=== PATIENT | male | born 1975 ===

== ENCOUNTER 2017-01-11 07:18 | Emergency (ER) | payer OTHER ==
[2017-01-11 07:24] VITALS: O2SAT 98
--- NOTE | 2017-01-11 08:24 | C.PDOC ---
History Of Present Illness 41-year-old male, presents to the emergency department with complaints of a fever since last night, that is associated with chills, generalized bodyaches, frontal headache and malaise. He did not take any medication. Denies nausea/ vomiting, diarrhea, back pain, symptoms, or any other associated symptoms. No other complaints at this time. Time Seen by Provider: 01/11/17 07:47 Chief Complaint (Nursing): Fever History Per: Patient History/Exam Limitations: no limitations Onset/Duration Of Symptoms: Days Current Symptoms Are (Timing): Still Present Past Medical History Reviewed: Historical Data, Nursing Documentation, Vital Signs Vital Signs: Last Vital Signs Temp 99.6 F 01/11/17 08:49 Pulse 82 01/11/17 08:49 Resp 16 01/11/17 08:49 BP 104/66 01/11/17 08:49 Pulse Ox 98 01/11/17 08:49 Family History: States: No Known Family Hx - Social History Hx Alcohol Use: No Hx Substance Use: No - Immunization History Hx Tetanus Toxoid Vaccination: No Hx Influenza Vaccination: No Hx Pneumococcal Vaccination: No Review Of Systems Except As Marked, All Systems Reviewed And Found Negative. Constitutional: Positive for: Fever, Chills, Malaise Cardiovascular: Negative for: Chest Pain Respiratory: Negative for: Shortness of Breath Gastrointestinal: Negative for: Nausea, Vomiting Genitourinary: Negative for: Dysuria, Frequency Musculoskeletal: Negative for: Back Pain Skin: Negative for: Rash Neurological: Negative for: Weakness, Headache, Dizziness Physical Exam - Physical Exam Appears: Non-toxic, No Acute Distress Skin: Warm, Dry, No Diaphoretic, No Rash Head: Atraumatic, Normacephalic Eye(s): bilateral: Normal Inspection, EOMI Ear(s): Bilateral: Normal Nose: Normal Oral Mucosa: Moist Lips: Normal Appearing Throat: Normal, No Erythema, No Exudate, No Drooling, No Mass Neck: Normal ROM, Supple Lymphatic: Normal Exam, No Adenopathy Chest: Symmetrical Cardiovascular: Rhythm Regular, No Murmur Respiratory: Normal Breath Sounds, No Accessory Muscle Use Gastrointestinal/Abdominal: Bowel Sounds, Soft, No Tenderness, No Distention, No Guarding Extremity: Bilateral: Atraumatic, Normal Color And Temperature, Normal ROM Neurological/Psych: Oriented x3, Normal Speech, Normal Motor, Normal Sensation Gait: Steady ED Course And Treatment O2 Sat by Pulse Oximetry: 98 Medical Decision Making Medical Decision Makin y.o male with no significant PMH complains of fever onset last night with associated generalized bodyaches and malaise. Patient has fever of 102F in ED and treated with Tylenol. Patient appears well nontoxic and in no acute distress. Exam was benign. He has no nuchal rigidity or signs of dehydration or surgical pathology. Patient encouraged to rest drink fluids and to continue with Motrin or tylenol for fever and follow up with PCP. Disposition Counseled Patient/Family Regarding: Diagnosis, Need For Followup, Rx Given - Disposition Disposition: HOME/ ROUTINE Disposition Time: 08:27 Condition: STABLE Additional Instructions: Vandana Tylenol o Motrin alternando cada 4-6 horas para la fiebre 100.4F o ms alto. Descanse y ephraim muchos lquidos. Prescriptions: Ibuprofen [Motrin] 600 mg PO Q8 #30 tab Instructions: Fever in Adults (GEN) Forms: Work Excuse Print Language: UKRAINIAN - POA Present On Arrival: None - Clinical Impression Clinical Impression: Fever, Influenza-like illness - Scribe Statement The provider has reviewed the documentation as recorded by the Scribe (Zev Lindsey) All medical record entries made by the Scribe were at my direction and personally dictated by me. I have reviewed the chart and agree that the record accurately reflects my personal performance of the history, physical exam, medical decision making, and the department course for this patient. I have also personally directed, reviewed, and agree with the discharge instructions and disposition.
[2017-01-11 09:02] VITALS: BP 104/66; PULSE 82; RESP 16; TEMP 99.6
== END 2017-01-11 09:02 | disposition home or self-care (01) ==
LOC: C.ER 07:18
DX: J11.1 Influenza due to unidentified influenza virus with other respiratory manifestations (principal); R50.81 Fever presenting with conditions classified elsewhere